=== PATIENT | male | born 1945 | race Caucasian/White ===

== ENCOUNTER 2020-03-23 07:06 | Outpatient (CLI) | payer MEDICARE, BC, OTHER ==
[2020-03-23 11:16] LABS: Hemoglobin 15.9 g/dL (14.0-18.0); Mean Corpuscular HGB CONC 32.8 g/dL (32.0-36.0); Mean Platelet Volume 9.6 fL (7.4-10.4); Platelet Count 123 thou/uL (130-400); RBC Distribution Width 12.7 % (11.5-14.5); Red Blood Cell (RBC) Count 4.82 mill/uL (4.70-6.10); White Blood Cell (WBC) Count 4.8 thou/uL (4.8-10.8)
[2020-03-23 11:36] LABS: PTT 29.6 sec (22.9-36.1)
[2020-03-23 11:37] LABS: INR-International Normal Ratio 0.9; Prothrombin Time 12.5 sec (12.0-14.7)
[2020-03-23 11:45] LABS: Anion Gap 13 mmol/L (10-20); BUN (Urea Nitrogen) 30 mg/dL (8.4-25.7); Calc. Creatinine Clearance 0 mL/min (70-130); Calcium 9.2 mg/dL (7.8-10.44); Carbon Dioxide 23 mmol/L (23-31); Chloride 107 mmol/L (98-107); Estimated GFR-MDRD 54; Glucose 98 mg/dL (83-110); Potassium 4.8 mmol/L (3.5-5.1); Sodium 138 mmol/L (136-145)
[2020-03-24 12:37] LABS: SARS-CoV-2 MS2 Positive; SARS-CoV-2 N Gene Negative; SARS-CoV-2 S Gene Negative; SARS-CoV-2 by NAA Not Detected (NotDetected); SARS-CoV-2 orf1ab Negative
== END 2020-03-23 07:07 | disposition home or self-care (01) ==
LOC: LABBT 07:06
PROVIDERS: ATTEND Surgery
DX: Z01.818 Encounter for other preprocedural examination (principal); Z11.59 Encounter for screening for other viral diseases; M48.061 Spinal stenosis, lumbar region without neurogenic claudication; M48.04 Spinal stenosis, thoracic region; M51.26 Other intervertebral disc displacement, lumbar region
CPT/HCPCS: 80048; 85027; 85610; 85730; 93005; U0003; 87635; 93010

== ENCOUNTER 2020-03-27 05:46 | Inpatient (IN) | payer MEDICARE, BC ==
[2020-03-21 14:19] VITALS: BMI 29.1
[2020-03-27] MEDS ORDERED: Thrombin 5000 UNITS/5 ML VIAL ONE (07:08)
[2020-03-27] MEDS ORDERED: Fentanyl 100 MCG/2 ML VIAL ONE ×5 (07:09→14:14)
[2020-03-27] MEDS ORDERED: Albumin 5% 500 ML ONE (09:40)
[2020-03-27] MEDS ORDERED: Dexamethasone 20 MG/5 ML VIAL ONE (10:30)
[2020-03-27] MEDS ORDERED: PROPOFOL 200 MG/20 ML VIAL ONE (10:30)
[2020-03-27] MEDS ORDERED: EPHEDRINE 25 MG/5 ML SYRINGE ONE (10:30)
[2020-03-27] MEDS ORDERED: Lidocaine 1% PF 5 ML VIAL ONE (10:30)
[2020-03-27] MEDS ORDERED: Rocuronium Bromide 10 MG/ML (10ML VIAL) ONE (10:30)
[2020-03-27] MEDS ORDERED: Ondansetron PF 4 MG/2 ML Vial ONE (10:30)
[2020-03-27] MEDS ORDERED: HYDROmorphone 2 MG/ML VIAL SLOW IVP PRN (10:54)
[2020-03-27] MEDS ORDERED: Promethazine HCl 25 MG/ML VIAL IM PRN (10:54)
[2020-03-27] MEDS ORDERED: Morphine Sulfate 2 MG/ML SYRINGE SLOW IVP PRN (10:54)
[2020-03-27] MEDS ORDERED: PACU-Morphine 4MG/ML VIAL SLOW IVP PRN (10:54)
[2020-03-27] MEDS ORDERED: Ondansetron HCl/PF 4 MG/2 ML Vial IVP PRN (10:54)
[2020-03-27] MEDS ORDERED: Promethazine HCl 25 MG/ML VIAL SLOW IVP PRN (10:54)
[2020-03-27] MEDS ORDERED: SUGAMMADEX SODIUM 200 MG/2 ML VIAL ONE (11:25)
[2020-03-27] MEDS ORDERED: traMADol HCl 50 MG TAB PO PRN (12:38)
[2020-03-27] MEDS ORDERED: Mag-Al 1200 mg/1200 mg/30 ML UDCUP PO PRN (12:38)
[2020-03-27] MEDS ORDERED: Morphine 2 MG/ML VIAL SLOW IVP PRN (12:38)
[2020-03-27] MEDS ORDERED: Bisacodyl 10 MG SUPP PR PRN (12:38)
[2020-03-27] MEDS ORDERED: Ondansetron PF 4 MG/2 ML Vial IVP PRN (12:38)
[2020-03-27] MEDS ORDERED: Acetaminophen 325 MG TAB PO PRN (12:38)
[2020-03-27] MEDS ORDERED: diphenhydrAMINE 25 MG CAP PO PRN (12:38)
[2020-03-27] MEDS ORDERED: Acetaminophen/Codeine 30-300mg Tablet PO PRN (12:38)
[2020-03-27] MEDS ORDERED: Fleet Enema 133 ML BOT PR PRN (12:38)
[2020-03-27] MEDS ORDERED: Promethazine HCl 25 MG/ML VIAL ONE (13:21)
[2020-03-27] MEDS ORDERED: CEFAZOLIN 2 GM in Premix Bag 1 BAG IVPB SCH (15:00)
[2020-03-27 15:49] LABS: Hemoglobin 12.9 g/dL (14.0-18.0)
[2020-03-27] MEDS: Sodium Chloride 0.9% 1,000 ML IV SCH ×2 (16:18→21:47)
[2020-03-27] MEDS: HYDROcodone/Acetaminophen 7.5/325 mg Tablet PO PRN (18:06)
[2020-03-27] MEDS: CEFAZOLIN 2 GM in Premix Bag 1 BAG IVPB SCH (20:47)
[2020-03-27] MEDS: Atorvastatin Calcium 10 MG TAB PO SCH (20:50)
[2020-03-27] MEDS: Tamsulosin HCl 0.4 MG CAP PO SCH (20:50)
[2020-03-28] MEDS: CEFAZOLIN 2 GM in Premix Bag 1 BAG IVPB SCH ×3 (05:00→20:12)
[2020-03-28 05:24] LABS: #Monocytes 0.7 thou/uL (0.11-0.59); #Neutrophils 5.6 thou/uL (1.40-6.50); %Eosinophils 0.1 % (0.0-10.0); %Lymphocytes 13.3 % (21.0-51.0); %Neutrophils 77.5 % (42.0-75.0); Hemoglobin 10.4 g/dL (14.0-18.0); Mean Corpuscular Hemoglobin 32.4 pg (27.0-31.0); Mean Platelet Volume 9.1 fL (7.4-10.4); Platelet Count 120 thou/uL (130-400); RBC Distribution Width 12.6 % (11.5-14.5); Red Blood Cell (RBC) Count 3.21 mill/uL (4.70-6.10); White Blood Cell (WBC) Count 7.2 thou/uL (4.8-10.8)
[2020-03-28 05:39] LABS: Anion Gap 9 mmol/L (10-20); BUN (Urea Nitrogen) 34 mg/dL (8.4-25.7); Calc. Creatinine Clearance 61 mL/min (70-130); Calcium 8.3 mg/dL (7.8-10.44); Carbon Dioxide 28 mmol/L (23-31); Chloride 105 mmol/L (98-107); Estimated GFR-MDRD 48; Glucose 139 mg/dL (83-110); Potassium 4.7 mmol/L (3.5-5.1); Sodium 137 mmol/L (136-145)
[2020-03-28] MEDS: Sodium Chloride 0.9% 1,000 ML IV SCH ×2 (05:52→20:11)
--- NOTE | 2020-03-28 07:36 | OP ---
DATE OF PROCEDURE: 03/27/2020 LOCATION: OR 12. [employer] OFFICE MANAGER: Morena Horan PA-C PREPROCEDURE DIAGNOSES: 1. Thoracic stenosis with myelopathy. 2. Multilevel lumbar stenosis with lumbar radiculopathy. 3. Lumbar disk extrusion with paracentral and lateral components, compression of the left L5 and left S1 nerve roots. 4. Use of operative microscope for microdissection. DESCRIPTION OF PROCEDURE: After informed consent was obtained from the patient, the patient was brought to the OR, proper patient, pause, and identification were carried out. He was placed under excellent general endotracheal anesthesia and positioned prone on the OR table. All appropriate points were padded. We identified the T11-T12. Linear stan was made over this area. This region was sterilely cleansed, prepared, and draped. A linear incision was drawn out as well from L2 through S1. Both areas were sterilely cleansed, prepared, and draped. Proper patient, pause, and identification were carried out. The thoracic wound was then opened first, sharp, monopolar, and blunt dissection and the T11-T12 site was identified. Localization film confirmed our area of interest. We then performed a T11-T12 laminectomy, partial facetectomy, and foraminotomy. Meticulous hemostasis occurred throughout. The lumbar spine wound was then opened and the L2 all the way down to S1 segments were exposed. Localization film confirmed our area of interest. We then performed L2, L3, L4, L5, and S1 laminectomies, partial facetectomies, and foraminotomies. Hemostasis was challenging as the patient was on both baby aspirin and fish oil. We then again had excellent decompression of the common dural tube and nerve roots. We then brought the microscope in and left L5-S1 diskectomy, but also trans-facet diskectomy was performed with excellent decompression of the common dural tube and the nerve roots, in particular via the trans-facet diskectomy, the freedom of the left L5 root. Both wounds were closed in anatomic layers following copious irrigation, hemostasis over drains. The patient emerged from anesthesia. Job ID: [id number]
[2020-03-28] MEDS: HYDROcodone/Acetaminophen 7.5/325 mg Tablet PO PRN ×2 (08:14→18:11)
[2020-03-28] MEDS: tiZANidine HCl 4 MG TAB PO PRN ×2 (08:14→18:11)
[2020-03-28] MEDS: Cholecalciferol 1,000 UNITS (25 MCG) TAB PO SCH (08:15)
[2020-03-28] MEDS: Cyanocobalamin (Vitamin B-12) 1,000 MCG TAB PO SCH (08:15)
[2020-03-28] MEDS: Allopurinol 300 MG TAB PO SCH (08:15)
[2020-03-28] MEDS: Valsartan 80 MG TAB PO SCH (08:15)
[2020-03-28] MEDS: Multivit, Therapeutic 1 TAB PO SCH (08:15)
[2020-03-28] MEDS: Milk Of Magnesia 30 ML UDCUP PO PRN (08:15)
--- NOTE | 2020-03-28 14:05 | PRG ---
DATE OF SERVICE: 03/28/2020 Mr. Zhao is now postoperative day #1 after undergoing T11-T12 laminectomy, partial facetectomies and foraminotomies, as well as L2-S1 laminectomies, partial facetectomies, and foraminotomies with left L5-S1 standard and trans-facet diskectomy. He reports a significant amount of mid and low back pain, that is exacerbated by any movement of his torso or arms. Initially after surgery, he reported continued pain in the left anterior delgado; however, he states that this has resolved overnight. At present, he denies any pain or paresthesias in his legs. Today, we will work on mobilizing the patient to further assess his gait stability. I have ordered physical therapy, as well as inpatient rehab screening. The patient's 2 ANTONIA drains will be left in place. He has had a total of 195 mL output from his thoracic drain and 225 mL total output from his lumbar drain. His Rucker catheter remains in place. The patient's hemoglobin this morning was 10.4, decreased from preoperative hemoglobin of 15.9. We will continue to monitor this. Note that he did have approximately 1700 mL of estimated blood loss during surgery yesterday. At this time, no blood transfusion is indicated. Our team will continue to monitor the patient during his hospital stay and we will reassess how he is doing in the morning. Please call for any neurologic changes or other concerns. Job ID: [id number]
[2020-03-28] MEDS: Tamsulosin HCl 0.4 MG CAP PO SCH (20:12)
[2020-03-28] MEDS: Atorvastatin Calcium 10 MG TAB PO SCH (20:12)
[2020-03-29] MEDS: tiZANidine HCl 4 MG TAB PO PRN ×2 (04:18→15:25)
[2020-03-29] MEDS: HYDROcodone/Acetaminophen 7.5/325 mg Tablet PO PRN ×3 (04:18→15:24)
[2020-03-29] MEDS: Milk Of Magnesia 30 ML UDCUP PO PRN (04:19)
[2020-03-29] MEDS: CEFAZOLIN 2 GM in Premix Bag 1 BAG IVPB SCH ×3 (04:24→21:09)
[2020-03-29] MEDS: Sodium Chloride 0.9% 1,000 ML IV SCH ×2 (05:18→18:46)
[2020-03-29 05:36] LABS: #Lymphocytes 1.1 thou/uL (1.20-3.40); #Monocytes 0.5 thou/uL (0.11-0.59); #Neutrophils 4.7 thou/uL (1.40-6.50); %Basophils 0.2 % (0.0-1.0); %Eosinophils 0.4 % (0.0-10.0); %Monocytes 8.6 % (0.0-10.0); %Neutrophils 73.8 % (42.0-75.0); Hemoglobin 9.6 g/dL (14.0-18.0); Mean Corpuscular HGB CONC 32.3 g/dL (32.0-36.0); Mean Corpuscular Hemoglobin 32.5 pg (27.0-31.0); Mean Platelet Volume 8.9 fL (7.4-10.4); Platelet Count 94 thou/uL (130-400); RBC Distribution Width 12.6 % (11.5-14.5); Red Blood Cell (RBC) Count 2.95 mill/uL (4.70-6.10); White Blood Cell (WBC) Count 6.3 thou/uL (4.8-10.8)
[2020-03-29] MEDS: Allopurinol 300 MG TAB PO SCH (07:50)
[2020-03-29] MEDS: Cholecalciferol 1,000 UNITS (25 MCG) TAB PO SCH (07:51)
[2020-03-29] MEDS: Cyanocobalamin (Vitamin B-12) 1,000 MCG TAB PO SCH (07:51)
[2020-03-29] MEDS: Valsartan 80 MG TAB PO SCH (07:51)
[2020-03-29] MEDS: Multivit, Therapeutic 1 TAB PO SCH (07:51)
--- NOTE | 2020-03-29 09:28 | PRG ---
DATE OF SERVICE: 03/29/2020 Mr. Zhao is now postoperative day #2 after undergoing T11-T12 laminectomy, partial facetectomies and foraminotomies as well as L2-S1 laminectomies, partial facetectomies and foraminotomies with left L5-S1 standard and transfacet discectomies. Today, he continues to endorse pain in his back with any type of movement or raising of his arms. He states that this pain improves with taking pain medications and muscle relaxants. He states that his leg pain remains resolved at this time. He did state that he had a little bit of pain around the ankle area after therapies yesterday, but again this has improved. He was able to ambulate approximately 300 feet using a walker for assistance with physical therapy yesterday. His lumbar drain output was 60 mL overnight and his thoracic drain output was 10 mL overnight. His Rucker catheter remains in place. Our team has ordered an inpatient rehab screening to determine the patient's disposition. Our team will continue to monitor the patient during his hospital stay. Please call for any neurologic changes or other concerns. Job ID: [id number]
--- NOTE | 2020-03-29 10:17 | PRG ---
DATE OF SERVICE: 03/29/2020 Mr. Zhao is postoperative day 2 following thoracic and lumbar multilevel decompression. He is doing well. He has had resolution in his leg pain. He has ambulated. We are going to remove his Rucker catheter. He was quite oozy at the surgery. He had stopped his fish oil, but had remained on the aspirin per my request for cardiac protection. His drain output overnight has been 60 and 10 mL. We will leave these in place. His hemoglobin, which was 15 preoperatively is down to 9.6, although I should note he is not tachycardic and his blood pressure has been satisfactory. He is on a beta-linda; however, which obviously can blunt tachycardia. If he does start to have symptoms of anemia, we will give him a unit of blood. His platelets are at 94,000 due to sequestration. I am hoping for inpatient rehab in the next couple days. Job ID: [id number]
[2020-03-29] MEDS: Atorvastatin Calcium 10 MG TAB PO SCH (21:09)
[2020-03-29] MEDS: Tamsulosin HCl 0.4 MG CAP PO SCH (21:09)
[2020-03-30] MEDS: tiZANidine HCl 4 MG TAB PO PRN (00:11)
[2020-03-30] MEDS: HYDROcodone/Acetaminophen 7.5/325 mg Tablet PO PRN ×3 (00:11→17:57)
[2020-03-30] MEDS: Sodium Chloride 0.9% 1,000 ML IV SCH ×2 (01:45→09:51)
[2020-03-30] MEDS: CEFAZOLIN 2 GM in Premix Bag 1 BAG IVPB SCH ×2 (04:20→17:00)
[2020-03-30 06:23] LABS: #Eosinphils 0.1 thou/uL (0.0-0.7); #Monocytes 0.6 thou/uL (0.11-0.59); #Neutrophils 4.3 thou/uL (1.40-6.50); %Basophils 0.1 % (0.0-1.0); %Eosinophils 1.6 % (0.0-10.0); %Lymphocytes 17.1 % (21.0-51.0); %Neutrophils 71.1 % (42.0-75.0); Hemoglobin 9.1 g/dL (14.0-18.0); Mean Corpuscular HGB CONC 32.8 g/dL (32.0-36.0); Mean Corpuscular Hemoglobin 33.1 pg (27.0-31.0); Platelet Count 93 thou/uL (130-400); RBC Distribution Width 12.3 % (11.5-14.5); Red Blood Cell (RBC) Count 2.75 mill/uL (4.70-6.10)
[2020-03-30] MEDS: Allopurinol 300 MG TAB PO SCH (09:46)
[2020-03-30] MEDS: Cholecalciferol 1,000 UNITS (25 MCG) TAB PO SCH (09:46)
[2020-03-30] MEDS: Cyanocobalamin (Vitamin B-12) 1,000 MCG TAB PO SCH (09:46)
[2020-03-30] MEDS: Valsartan 80 MG TAB PO SCH (09:46)
[2020-03-30] MEDS: Multivit, Therapeutic 1 TAB PO SCH (09:47)
[2020-03-30 13:07] VITALS: TEMP 98.3
[2020-03-30 16:14] VITALS: BP 120/86
== END 2020-03-30 18:48 | disposition home health service (06) | DRG 520 ==
LOC: SDC 05:46 → SURG B 15:27
PROVIDERS: ADMIT Surgery; ATTEND Surgery
PROC: 0SB20ZZ Excision of Lumbar Vertebral Disc, Open Approach (ICD-10-PCS; principal; 2020-03-27)
PROC: 0SB40ZZ Excision of Lumbosacral Disc, Open Approach (ICD-10-PCS; 2020-03-27)
PROC: 01NB0ZZ Release Lumbar Nerve, Open Approach (ICD-10-PCS; 2020-03-27)
DX: M48.062 Spinal stenosis, lumbar region with neurogenic claudication (principal); M48.04 Spinal stenosis, thoracic region; M51.26 Other intervertebral disc displacement, lumbar region; M54.16 Radiculopathy, lumbar region; Z96.651 Presence of right artificial knee joint; Z95.5 Presence of coronary angioplasty implant and graft
CPT/HCPCS: 36415; 36430; 76000; 80048; 85018; 85025; 86850; 86900; 86901; J0690; J1100; J2405; J2550; J2704; J3010; J3370; P9016; P9045